=== PATIENT | male | born 1955 | race Caucasian/White ===

== ENCOUNTER 2021-12-04 12:14 | Inpatient (IN) | payer MEDICARE, OTHER ==
[~2021-12-04] VITALS: Ht 167.6 cm; Wt 76.7 kg
[2021-12-04] MEDS ORDERED: ZOLPIDEM TARTRATE 10 MG TABLET PO PRN (13:45)
[2021-12-04 14:06] LABS: BASOPHILS % (AUTO) 0.4 % (0.0-2.0); EOSINOPHILS % (AUTO) 0.2 % (1.0-6.0); HEMATOCRIT 42.7 % (41-53); HEMOGLOBIN 14.3 g/dL (13.5-17.5); LYMPHOCYTES # (AUTO) 1.1 K/uL (1.0-4.8); LYMPHOCYTES % (AUTO) 9.1 % (22.0-44.0); MEAN CORPUSCULAR HEMOGLOBIN 30.2 pg (26.0-34.0); MEAN CORPUSCULAR HGB CONC 33.6 G/dL (31.0-37.0); MEAN CORPUSCULAR VOLUME 90 fL (80-100); MONOCYTES # (AUTO) 0.8 K/uL (0.1-1.0); MONOCYTES % (AUTO) 6.3 % (2.0-9.0); NEUTROPHILS # (AUTO) 10.2 K/uL (1.8-7.7); PLATELET COUNT (AUTO) 235 K/uL (150-450); RED BLOOD CELL COUNT(AUTO) 4.75 MIL/uL (4.50-5.90); RED CELL DISTRIBUTION WIDTH 14.8 % (11.5-14.5)
[2021-12-04 14:16] LABS: ANION GAP 7 mmol/L (8-16); CALCIUM, TOTAL 8.1 mg/dL (8.8-10.5); CARBON DIOXIDE 23 mmol/L (22-29); CHLORIDE 104 mmol/L (98-107); CREATININE 1.03 mg/dL (0.60-1.30); GLOMERULAR FILTR. RATE CALC > 60 mL/min (>60); GLUCOSE,RANDOM 83 mg/dL (70-110); POTASSIUM 3.6 mmol/L (3.5-5.1); SODIUM SERUM 134 mmol/L (136-145); UREA NITROGEN, BLOOD 26 mg/dL (7-18)
[2021-12-04 14:22] LABS: ALANINE AMINOTRANSFERASE 17 U/L (12-78); ALBUMIN 2.6 g/dL (3.4-5.0); ALKALINE PHOSPHATASE 115 U/L (46-116); ASPARTATE AMINOTRANSFERASE 29 U/L (15-37); BILIRUBIN,TOTAL 0.3 mg/dL (0.1-1.0); TOTAL PROTEIN, SERUM 7.1 g/dL (6.4-8.2)
[2021-12-04 14:41] LABS: COVID AG,FIA SOURCE NASAL SWAB
[2021-12-04] MEDS: LORazepam 2 MG TABLET PO PRN (17:24)
[2021-12-04] MEDS: HALOPERIDOL 5 MG TABLET PO PRN (17:24)
[2021-12-04 18:15] VITALS: BP 123/66
[2021-12-04] MEDS: AMOX TR/POT CLAV 500 MG/125 MG TABLET PO SCH (20:36)
[2021-12-04] MEDS: EZETIMIBE 10 MG TABLET PO SCH (20:36)
[2021-12-05] MEDS: LORazepam 2 MG TABLET PO PRN ×2 (08:12→17:43)
[2021-12-05] MEDS: EZETIMIBE 10 MG TABLET PO SCH (08:12)
[2021-12-05] MEDS: HALOPERIDOL 5 MG TABLET PO PRN ×2 (08:12→17:43)
[2021-12-05] MEDS: AMOX TR/POT CLAV 500 MG/125 MG TABLET PO SCH ×3 (08:12→16:16)
[2021-12-05] MEDS ORDERED: ALBUTEROL SULFATE HFA 90 MCG/PUFF 8 GM INHALER IH PRN (09:30)
[2021-12-05] MEDS ORDERED: CloNIDine HCL 0.1 MG TABLET PO PRN (09:30)
[2021-12-05] MEDS ORDERED: MAG HYDROX/AL HYDROX/SIMETH ES 30 ML SUSPENSION UDCUP PO PRN (09:30)
[2021-12-05] MEDS ORDERED: MAGNESIUM HYDROXIDE SUSPENSION 30 ML UDCUP PO PRN (09:30)
[2021-12-05] MEDS ORDERED: PETROLATUM,WHITE 28 GM JELLY TP PRN (09:30)
[2021-12-05] MEDS ORDERED: IBUPROFEN 400 MG TABLET PO PRN (09:30)
[2021-12-05] MEDS ORDERED: NICOTINE 14 MG/24 HOUR PATCH TD PRN (09:30)
[2021-12-05] MEDS ORDERED: ONDANSETRON HCL 4 MG TABLET PO PRN (09:30)
[2021-12-05] MEDS ORDERED: GuaiFENesin/D-METHORPHAN [SUGAR-FREE] 200-20MG/10 ML SYRUP UDCUP PO PRN (09:30)
[2021-12-05] MEDS ORDERED: DOCUSATE SODIUM 100 MG CAPSULE PO PRN (09:30)
[2021-12-05] MEDS ORDERED: LOPERAMIDE HCL 2 MG CAPSULE PO PRN (09:30)
[2021-12-05] MEDS ORDERED: ACETAMINOPHEN 325 MG TABLET PO PRN (09:30)
[2021-12-05] MEDS: OLANZapine 5 MG TABLET PO SCH (16:16)
[2021-12-05 16:24] VITALS: BP 135/83
[2021-12-06 08:10] VITALS: BP 121/82
[2021-12-06] MEDS: EZETIMIBE 10 MG TABLET PO SCH (08:20)
[2021-12-06] MEDS: AMOX TR/POT CLAV 500 MG/125 MG TABLET PO SCH ×3 (08:20→16:03)
[2021-12-06] MEDS: OLANZapine 5 MG TABLET PO SCH ×2 (08:20→16:03)
[2021-12-06] MEDS: LORazepam 2 MG TABLET PO PRN (16:09)
[2021-12-06] MEDS: HALOPERIDOL 5 MG TABLET PO PRN (16:09)
[2021-12-07] MEDS: LORazepam 2 MG TABLET PO PRN (08:20)
[2021-12-07] MEDS: HALOPERIDOL 5 MG TABLET PO PRN (08:20)
[2021-12-07] MEDS: OLANZapine 5 MG TABLET PO SCH ×2 (09:08→16:11)
[2021-12-07] MEDS: AMOX TR/POT CLAV 500 MG/125 MG TABLET PO SCH ×3 (09:09→16:11)
[2021-12-07] MEDS: EZETIMIBE 10 MG TABLET PO SCH (09:09)
[2021-12-08 08:00] VITALS: BP 129/67
[2021-12-08] MEDS: OLANZapine 5 MG TABLET PO SCH (09:59)
[2021-12-08] MEDS: AMOX TR/POT CLAV 500 MG/125 MG TABLET PO SCH ×2 (09:59→13:00)
[2021-12-08] MEDS: EZETIMIBE 10 MG TABLET PO SCH (09:59)
[2021-12-08] MEDS ORDERED: OLAN5TAB52 PO (11:45)
[2021-12-08] MEDS ORDERED: AMOX1TAB15 PO (12:04)
[2021-12-08] MEDS ORDERED: EZET10TA57 PO (12:05)
== END 2021-12-08 15:32 | disposition home or self-care (01) | DRG 885 ==
LOC: EMS 12:17 → 3EC 16:10
PROVIDERS: ADMIT Psychiatry & Neurology Child & Adolescent Psychiatry; ATTEND Psychiatry & Neurology Child & Adolescent Psychiatry
DX: F20.0 Paranoid schizophrenia (principal); E87.1 Hypo-osmolality and hyponatremia; R45.851 Suicidal ideations; D72.829 Elevated white blood cell count, unspecified; E78.5 Hyperlipidemia, unspecified; M19.90 Unspecified osteoarthritis, unspecified site; Z20.822 Contact with and (suspected) exposure to COVID-19; M48.00 Spinal stenosis, site unspecified; I10 Essential (primary) hypertension; E78.00 Pure hypercholesterolemia, unspecified; R45.850 Homicidal ideations; F17.210 Nicotine dependence, cigarettes, uncomplicated; Z88.8 Allergy status to other drugs, medicaments and biological substances
CPT/HCPCS: 80053; 85025; 99285; G0480